=== PATIENT | female | born 1990 | race Caucasian/White ===

== ENCOUNTER → 2016-07-13 | Outpatient (CLI) | payer OTHER, MEDICAID ==
[~2016-07-13] MED LIST: DIAZ5 PO; HYDR-3533 PO; MEDR10 PO; PERC5TAB12 PO; VITA10002 PO
[2016-07-13 13:03] LABS: AUTOMATED NEUTROPHIL # 3.7 TH/MM3 (1.8-7.7); BASOPHIL % 0.5 % (0.0-2.0); EOSINOPHIL # 0.1 TH/MM3 (0-0.4); EOSINOPHIL % 1.6 % (0.0-4.0); HEMATOCRIT 36.9 % (35.0-46.0); HEMO FLAGS DIFF FINAL; LYMPH % 30.2 % (9.0-44.0); LYMPHOCYTE # 1.9 TH/MM3 (1.0-4.8); MEAN CELL VOLUME 86.5 FL (80.0-100.0); MEAN CORPUSCULAR HEMOGLOBIN 28.9 PG (27.0-34.0); MEAN CORPUSCULAR HGB CONC 33.4 % (32.0-36.0); MONO % 9.5 % (0.0-8.0); NEUT % 58.2 % (16.0-70.0); PLATELET COUNT 247 TH/MM3 (150-450); RED BLOOD COUNT 4.26 MIL/MM3 (4.00-5.30); RED CELL DISTRIBUTION WIDTH 12.8 % (11.6-17.2); WHITE BLOOD COUNT 6.3 TH/MM3 (4.0-11.0)
[2016-07-13 13:09] LABS: BACTERIA, URINE RARE /hpf; BLOOD, URINE NEG (NEG); GLUCOSE,URINE NEG (NEG); KETONE, URINE NEG (NEG); MUCUS URINE FEW /lpf (OCC); NITRITE,URINE NEG (NEG); PH, URINE 6.5 (5.0-8.5); SQUAMOUS EPITHELIAL CELL URINE 3 /hpf (0-5); URINE COLOR LIGHT-YELLOW (YELLW/STRAW)
[2016-07-13 13:35] LABS: ANION GAP 8 MEQ/L (5-15); BICARBONATE 27.1 MEQ/L (21.0-32.0); BLOOD UREA NITROGEN 11 MG/DL (7-18); CHLORIDE 104 MEQ/L (98-107); GLOMERULAR FILTRATION RATE 110 ML/MIN (>89); GLUCOSE,FASTING 83 MG/DL (74-99); POTASSIUM 3.6 MEQ/L (3.5-5.1); SODIUM (NA) 139 MEQ/L (136-145)
[2016-07-13 13:36] LABS: BHCG SCREEN QUALITATIVE LESS THAN 1 MIU/ML (0-5)
== END ==
LOC: CPRE 12:04
PROVIDERS: ATTEND Obstetrics & Gynecology
DX: Z01.812 Encounter for preprocedural laboratory examination (principal); R10.2 Pelvic and perineal pain
CPT/HCPCS: 36415; 80048; 81001; 84703; 85025

== ENCOUNTER 2016-07-20 07:49 | Observation (INO) | payer OTHER, MEDICAID ==
[~2016-07-20] VITALS: Ht 149.9 cm; Wt 41.3 kg
[~2016-07-20 07:49] MED LIST changes: -MEDR10 PO
[2016-07-20] MEDS ORDERED: POVIDONE IODINE 5% (ANTISEPSIS KIT) 4 APPLICATIONS EACH NARE PRN (08:45)
[2016-07-20] MEDS ORDERED: ceFAZolin 1,000 MG/NS 100 ML IV ONE ×2 (08:45)
[2016-07-20] MEDS ORDERED: SODIUM CHLORID 0.9% 500 ML IV PRN (08:45)
[2016-07-20] MEDS ORDERED: CHLORHEXIDINE GLUCONATE 2 % 1 PACK (2 CLOTHS) TOPICAL PRN (08:45)
[2016-07-20] MEDS ORDERED: METOPROLOL TARTRATE 25 MG TAB PO PRN (08:45)
[2016-07-20] MEDS ORDERED: INSULIN HUMAN REGULAR 1,000 UNITS/10 ML VIAL SQ PRN (08:45)
[2016-07-20] MEDS ORDERED: LACTATED RINGER'S 1000 ML IV PRN (08:45)
[2016-07-20 08:48] VITALS: BP 113/64; PULSE 64; RESP 16; TEMP 98.4; O2SAT 100
[2016-07-20] MEDS ORDERED: MIDAZOLAM HCL 2 MG/2 ML VIAL ONE (10:48)
[2016-07-20] MEDS ORDERED: DEXAMETHASONE SOD PHOS 4 MG/ML VIAL ONE (10:48)
[2016-07-20] MEDS ORDERED: FAMOTIDINE 20 MG/2 ML VIAL ONE (10:48)
[2016-07-20] MEDS ORDERED: ACETAMINOPHEN 1000 MG/100 ML VIAL IV ONE (10:52)
[2016-07-20] MEDS ORDERED: ONDANSETRON HCL 4 MG/2 ML VIAL IV PUSH ONE (12:00)
[2016-07-20] MEDS ORDERED: KETOROLAC TROMETHAMINE 60 MG/2 ML (IM) VIAL IM ONE (12:00)
[2016-07-20] MEDS ORDERED: fentaNYL CITRATE 250 MCG/5 ML AMP ONE (13:13)
[2016-07-20] MEDS ORDERED: IBUPROFEN 600 MG TAB PO PRN (13:15)
[2016-07-20] MEDS ORDERED: ONDANSETRON ODT 4 MG TAB PO PRN (13:15)
[2016-07-20] MEDS ORDERED: ZOLPIDEM TARTRATE 5 MG TAB PO PRN (13:15)
[2016-07-20] MEDS ORDERED: diphenhydrAMINE HCL 25 MG CAP PO PRN (13:15)
[2016-07-20] MEDS ORDERED: oxyCODONE/ACETAMINOPHEN 5 MG/325 MG TAB PO PRN (13:15)
[2016-07-20] MEDS ORDERED: SODIUM CHLORIDE 0.9% FLUSH 10 ML FLUSH IV FLUSH PRN (13:15)
[2016-07-20] MEDS ORDERED: *ONDANSETRON 4 MG VIAL PERIprocedural Use ONLY ONE (13:22)
[2016-07-20] MEDS ORDERED: *MEPERIDINE 25 MG INJ VIAL PERIprocedural Use ONLY ONE (13:27)
[2016-07-20] MEDS: LACTATED RINGER'S 1000 ML INJ 1,000 ML IV SCH ×2 (13:50→23:08)
[2016-07-20] MEDS ORDERED: *morphine SULFATE 8 MG/ML PERIprocedure ONLY ONE (13:53)
[2016-07-20] MEDS ORDERED: DO NOT ADM ANY ANTICOAGULANT DRUGS PRN (14:00)
[2016-07-20 14:30] VITALS: BP 108/57; PULSE 81; RESP 16; TEMP 98; O2SAT 100
[2016-07-20 15:33] VITALS: O2SAT 98
[2016-07-20 16:00] VITALS: BP 112/60; PULSE 75; RESP 16; TEMP 97.6; O2SAT 100
[2016-07-20] MEDS: DOCUSATE SODIUM 100 MG CAP PO SCH (16:20)
[2016-07-20] MEDS: HYDROmorphone HCL PF 1 MG/ML VIAL IVP PRN ×2 (16:21→21:12)
[2016-07-20 20:00] VITALS: BP 101/52; PULSE 68; RESP 18; TEMP 99.4; O2SAT 98
[2016-07-20] MEDS: SODIUM CHLORIDE 0.9% FLUSH 10 ML FLUSH IV FLUSH SCH (21:25)
[2016-07-21] VITALS: BP 96/55; PULSE 67; RESP 17; TEMP 98.6; O2SAT 97
[2016-07-21] MEDS: DOCUSATE SODIUM 100 MG CAP PO SCH ×2 (01:15→12:09)
[2016-07-21] MEDS: oxyCODONE/ACETAMINOPHEN 5 MG/325 MG TAB PO PRN ×4 (03:55→15:44)
[2016-07-21 04:00] VITALS: BP 98/57; PULSE 58; RESP 16; TEMP 98.6; O2SAT 98
[2016-07-21] MEDS: LACTATED RINGER'S 1000 ML INJ 1,000 ML IV SCH (07:41)
[2016-07-21] MEDS: SODIUM CHLORIDE 0.9% FLUSH 10 ML FLUSH IV FLUSH SCH (07:41)
[2016-07-21 08:00] VITALS: BP 112/60; PULSE 65; RESP 18; TEMP 98.4; O2SAT 99
[2016-07-21 08:03] LABS: AUTOMATED NEUTROPHIL # 5.3 TH/MM3 (1.8-7.7); BASOPHIL % 0.2 % (0.0-2.0); EOSINOPHIL # 0.1 TH/MM3 (0-0.4); EOSINOPHIL % 0.7 % (0.0-4.0); HEMATOCRIT 29.2 % (35.0-46.0); HEMO FLAGS DIFF FINAL; LYMPH % 26.3 % (9.0-44.0); LYMPHOCYTE # 2.2 TH/MM3 (1.0-4.8); MEAN CELL VOLUME 86.7 FL (80.0-100.0); MEAN CORPUSCULAR HEMOGLOBIN 29.4 PG (27.0-34.0); MEAN CORPUSCULAR HGB CONC 33.9 % (32.0-36.0); MONO % 10.3 % (0.0-8.0); NEUT % 62.5 % (16.0-70.0); PLATELET COUNT 214 TH/MM3 (150-450); RED BLOOD COUNT 3.37 MIL/MM3 (4.00-5.30); RED CELL DISTRIBUTION WIDTH 12.7 % (11.6-17.2); WHITE BLOOD COUNT 8.4 TH/MM3 (4.0-11.0)
[2016-07-21 08:15] LABS: POTASSIUM 3.5 MEQ/L (3.5-5.1)
--- NOTE | 2016-07-21 08:23 | HHI.PR ---
Subjective Remarks Doing well, pain is well controlled, eating well. Objective Vital Signs Vital Signs Date Time Temp Pulse Resp B/P Pulse Ox O2 Delivery O2 Flow Rate FiO2 07/21/16 08:00 98.4 65 18 112/60 99 07/21/16 05:27 16 07/21/16 04:00 98.6 58 16 98/57 98 07/21/16 00:00 98.6 67 17 96/55 97 07/20/16 23:55 16 07/20/16 20:00 99.4 68 18 101/52 98 07/20/16 16:00 97.6 75 16 112/60 100 07/20/16 15:33 98 21 07/20/16 14:30 98.0 81 16 108/57 100 07/20/16 14:10 97.6 60 16 106/58 98 Room Air 07/20/16 14:00 58 16 103/56 97 Room Air 07/20/16 13:58 15 07/20/16 13:58 15 07/20/16 13:45 56 15 100/53 100 Nasal Cannula 2 07/20/16 13:30 55 15 102/54 99 Nasal Cannula 2 07/20/16 13:15 53 15 105/56 98 Nasal Cannula 2 07/20/16 13:08 97.4 51 16 102/54 100 Nasal Cannula 3 07/20/16 08:48 98.4 64 16 113/64 100 I/O 07/20/16 07/20/16 07/20/16 07/21/16 07/21/16 07/21/16 07:00 15:00 23:00 07:00 15:00 23:00 Intake Total 950 ml 600 ml Output Total 575 ml 1300 ml 300 ml Balance 375 ml -700 ml -300 ml Intake Oral 600 ml IV Total 100 ml Other 850 ml Output Urine Total 525 ml 1300 ml 300 ml Estimated Blood Loss 50 ml # Voids 1 Result Diagram: 07/21/16 0735 07/21/16 0735 Objective Remarks Chest is clear, regular rate and rhythm. Abdomen is soft and non-distended. Incision is clean and dry. Ext no CCE. A/P Assessment and Plan Post Op Day 1 Doing well Home today and return to office in two weeks. Mona Brown MD July 21, 2016 08:23
[2016-07-21 12:00] VITALS: BP 118/69; PULSE 72; RESP 18; TEMP 98.6; O2SAT 99
--- NOTE | 2016-07-21 12:20 | HHI.DCPOC ---
Discharge Care Plan Diagnosis: (1) H/O: hysterectomy Report Symptoms to Your Doctor -Temperate above 100.5 degrees -Redness, of incision or excessive or foul smelling drainage -Unusual pain or calf pain -Increased vaginal bleeding -Painful or difficulty urinating -Feelings of extreme sadness or anxiety after 2 weeks Goals to Promote Your Health * To prevent worsening of your condition and complications * To maintain your health at the optimal level Directions to Meet Your Goals Take your medications as prescribed Follow your dietary instruction Follow activity as directed Ensure plenty of rest for recovery Drink fluids for hydration Keep your appointments as scheduled Take your immunizations and boosters as scheduled If your symptoms worsen call your PCP, if no PCP go to Urgent Care Center or Emergency Room Smoking is Dangerous to Your Health. Avoid second hand smoke Call the 24-hour crisis hotline for domestic abuse at Yessi Anderson July 21, 2016 12:20
--- NOTE | 2016-07-22 08:29 | MP ---
cc: Mona BROWN MD DATE OF SURGERY: 07/20/2016. PREOPERATIVE DIAGNOSIS: 1. Severe dyspareunia. 2. Dysfunctional uterine bleeding. 3. Pelvic pain. POSTOPERATIVE DIAGNOSIS: 1. Severe dyspareunia. 2. Dysfunctional uterine bleeding. 3. Pelvic pain. OPERATIVE PROCEDURE PERFORMED: Laparoscopic-assisted vaginal hysterectomy and bilateral salpingectomy. SURGEON: Mona Brown MD. ANESTHESIA: General endotracheal intubation. FINDINGS: On examination under anesthesia the vagina was clean. The cervix was clean and parous without lesions. The uterus was normal in size, shape and consistency, anteverted and anteflexed. The adnexa were negative for masses. The laparoscopic exam revealed a normal uterus, normal fallopian tubes, normal ovaries, a little bit of pelvic congestion. The cul-de-sacs were clean. The upper abdomen was clean. COMPLICATIONS: None. COUNTS: Correct. ESTIMATED BLOOD LOSS: 50 cc. FLUIDS: Crystalloids. DISPOSITION: The patient tolerated the procedure well and went to the recovery room in good condition. INDICATIONS FOR THE PROCEDURE: This is a lady who came in for evaluation of pelvic pain and severe dyspareunia. On examination, her up bladder was nontender, her urethra was nontender but her uterus was exquisitely tender. After discussing the various options for treatment, she decided to proceed with a laparoscopic-assisted vaginal hysterectomy and she is admitted for that procedure. DESCRIPTION OF THE PROCEDURE IN DETAIL: The patient was taken to the operating room, identified by name band and verbally given a general anesthetic and placed in dorsal lithotomy position. She was prepped and draped in the usual sterile fashion and a time-out was taken. Once we all agreed, proceeded with the examination under anesthesia and placing the Paulson catheter. A weighted speculum was placed in the vagina, the anterior lip of the cervix grasped with a single-tooth tenaculum. The cervix was then cannulized with a Hulka clamp for uterine manipulation. Changing our gloves, we went to the umbilical area. A small subumbilical incision was made and a #5 trocar was introduced under direct vision without difficulty. A pneumoperitoneum was created with 3 liters of CO2. Inferior lateral to the umbilicus on the left we put a 10-mm port under direct vision and a 5-mm port on the right for manipulation. At this point we placed her in Trendelenburg, visualized all the internal organs and proceeded with the hysterectomy. The round ligaments were taken down bilaterally and a bladder flap was created with the harmonic 7 scalpel. The mesosalpinx of the fallopian tubes were then taken down with harmonic scalpel and the broad ligament was taken down to the level of the uterine vessels without difficulty. The uterine vessels were skeletonized and taken to the level of the internal cervical os with the harmonic scalpel. Hemostasis was excellent. Once this had been accomplished the uterus blanched nicely. The bladder flap was pushed back a little farther out of harm's way and, using the harmonic scalpel, we transected the cervix without difficulty after removing the Hulka clamp. Once this had been accomplished the Kleppinger forceps was used to burn the endocervix and the cervical bed. Small bleeders were coagulated with the Kleppinger and a large amount of fluid was used to clean the pelvis out. At this point to the morcellator was placed into the 12-mm port and the specimen was morcellated without difficulty. We turned this in for pathologic evaluation, then we cleaned out the gutters and the cul-de-sac with a large amount of fluid and placed a piece of Interceed over the cervical stump to prevent adhesions. At this point and the 10-mm port was removed and the fascia was repaired with a 2-0 Vicryl. The air was released through the second puncture and the laparoscope was removed under direct vision without difficulty. The skin was repaired with a 4-0 Monocryl in a subcuticular manner. At this point all the instruments were removed. She tolerated the procedure well and went to the recovery room in good condition. R. MD EDISON Corea/MO /1:44 PM /8:25 AM
== END 2016-07-21 15:30 | disposition home or self-care (01) ==
LOC: HSDC 07:49 → HSDI 13:13 → HOCB 14:18
PROVIDERS: ADMIT Obstetrics & Gynecology; ATTEND Obstetrics & Gynecology
DX: N93.8 Other specified abnormal uterine and vaginal bleeding (principal); N87.9 Dysplasia of cervix uteri, unspecified; N72 Inflammatory disease of cervix uteri; N94.10 Unspecified dyspareunia; N83.8 Other noninflammatory disorders of ovary, fallopian tube and broad ligament; F17.200 Nicotine dependence, unspecified, uncomplicated
CPT/HCPCS: 58552; 80048; 85025; 88307; 94150; G0378; J0131; J0690; J1100; J1170; J1885; J2175; J2250; J2270; J2405; J3010; J7120